=== PATIENT | male | born 1980 | race Hispanic/Latino ===

== ENCOUNTER 2017-06-05 18:14 | Inpatient (IN) | payer MEDICARE, MEDICAID ==
[2017-06-05 18:14] VITALS: BMI 35.4
[2017-06-05 21:03] LABS: URINE BILIRUBIN NEGATIVE (NEGATIVE); URINE BLOOD NEGATIVE (NEGATIVE); URINE COLOR Straw (YELLOW); URINE GLUCOSE (UA) NORMAL (Normal); URINE KETONE NEGATIVE (NEGATIVE); URINE LEUKOCYTE ESTERASE NEG Leu/uL (Negative); URINE PROTEIN NEGATIVE (NEGATIVE); URINE UROBILINOGEN NORMAL mg/dL (0.2-1.0); WBC URINE 1 /hpf (0-5)
[2017-06-05 21:28] LABS: BASO % 0.4 % (0.0-2.0); EOS % 0.3 % (0.0-4.0); HEMATOCRIT 40.8 % (35.0-51.0); LYMPH # 2.9 K/uL (1.0-4.3); MEAN CELL VOLUME 81.4 fL (80.0-94.0); MEAN CORPUSCULAR HGB CONC 34.4 g/dL (33.0-37.0); MEAN PLATELET VOLUME 8.6 fL (7.2-11.7); MONO # 0.5 K/uL (0.0-0.8); MONO % 5.2 % (0.0-10.0); RED CELL DISTRIBUTION WIDTH 13.9 % (11.5-14.5); WHITE BLOOD COUNT 9.9 K/uL (4.8-10.8)
[2017-06-05 21:43] LABS: ALB/GLOB RATIO 1.4 (1.0-2.1); ALCOHOL SERUM < 10 mg/dl (0-10); ALKALINE PHOSPHATASE 63 U/L (38-126); ALT/SGPT 29 U/L (21-72); AST/SGOT 12 U/L (17-59); BILIRUBIN,TOTAL 0.4 mg/dL (0.2-1.3); BLOOD UREA NITROGEN 17 mg/dL (9-20); CALCIUM 8.6 mg/dl (8.6-10.4); CARBON DIOXIDE 20 mmol/L (22-30); CHLORIDE 108 mmol/L (98-107); GFR AFRICAN-AMERICAN > 60; GLUCOSE,RANDOM 85 mg/dL (75-110); POTASSIUM 3.7 mmol/L (3.6-5.2); SODIUM 140 mmol/L (132-148); TOTAL PROTEIN 6.9 g/dL (6.3-8.3)
--- NOTE | 2017-06-06 00:35 | C.PDOC ---
History Of Present Illness Patient is a 37 y/o male who presents to the ED from [facility] for detox. Patient reports [facility] was not administering any antipsychotic medications, and is feeling paranoid and psychotic. Patient requests Geodon PO for symptoms. No other physical complaints at this time. Time Seen by Provider: 06/05/17 20:31 Chief Complaint (Nursing): Psychiatric Evaluation History Per: Patient History/Exam Limitations: no limitations Current Symptoms Are (Timing): Still Present Modifying Factor(s): Other Associated Symptoms: Paranoia Recent travel outside of the [place]: No Past Medical History Reviewed: Historical Data, Nursing Documentation, Vital Signs Vital Signs: Last Vital Signs Temp 98.5 F 06/05/17 21:50 Pulse 62 06/05/17 21:50 Resp 18 06/05/17 21:50 BP 115/74 06/05/17 21:50 Pulse Ox 98 06/06/17 00:41 - Medical History PMH: Anxiety, Depression Denies: Diabetes, Hepatitis, HIV, HTN, Seizures, Sexually Transmitted Disease Surgical History: No Surg Hx - [facility] Procedures INDIVIDUAL PSYCHOTHERAPY, SUPPORTIVE (06/18/16) Family History: States: Unknown Family Hx - Social History Hx Alcohol Use: No Hx Substance Use: No - Immunization History Hx Tetanus Toxoid Vaccination: No Hx Influenza Vaccination: Yes Hx Pneumococcal Vaccination: No Review Of Systems Constitutional: Negative for: Fever, Chills Psych: Positive for: Other (drug detox, feels paranoid) Physical Exam - Physical Exam Appears: Well, Other (mildly anxious, pleasant and cooperative) Skin: Normal Color, Warm, Dry Head: Atraumatic, Normacephalic Oral Mucosa: Moist Chest: Symmetrical Cardiovascular: Rhythm Regular, No Murmur Respiratory: Normal Breath Sounds, No Rales, No Rhonchi, No Wheezing ED Course And Treatment - Laboratory Results Result Diagrams: 06/05/17 21:21 06/05/17 21:21 Lab Interpretation: Normal (tox neg.) O2 Sat by Pulse Oximetry: 98 (room air) Pulse Ox Interpretation: Normal Progress Note: geodon PO Reevaluation Time: 01:29 Reassessment Condition: Improved - Physician Consult Information Outcome Of Conversation: d/w Crisis, ok to admit Medical Decision Making Medical Decision Making: Geodon PO administered. Disposition Doctor Will See Patient In The: Hospital Counseled Patient/Family Regarding: Studies Performed, Diagnosis - Disposition Disposition: HOSPITALIZED Disposition Time: 01:30 Condition: GOOD Forms: [facility] ([place]) - Clinical Impression Clinical Impression: Schizophrenia, Opiate abuse, continuous, Cocaine abuse - Scribe Statement The provider has reviewed the documentation as recorded by the Scribe Kristy Armstrong All medical record entries made by the Scribe were at my direction and personally dictated by me. I have reviewed the chart and agree that the record accurately reflects my personal performance of the history, physical exam, medical decision making, and the department course for this patient. I have also personally directed, reviewed, and agree with the discharge instructions and disposition.
[2017-06-06 02:15] VITALS: O2SAT 97
--- NOTE | 2017-06-06 03:07 | PCM.BM ---
<Sanjiv Marin - Last Filed: 06/06/17 03:04> Treatment Plan Problems - Problems identified on initial assessmt Depression Date Initiated: 06/06/17 Time Initiated: 02:30 Assessment reference: NA Status: Active Suicidal Ideation Date Initiated: 06/06/17 Time Initiated: 02:30 Assessment reference: NA Status: Active Auditory Hallucination Date Initiated: 06/06/17 Time Initiated: 02:30 Assessment reference: NA Status: Active Substance Abuse Date Initiated: 06/06/17 Time Initiated: 02:30 Assessment reference: NA Status: Active Treatment assets and liabiliti Patient Assests: cooperative, educated, self-reliant, ADL independent, negotiates basic needs Patient Liabilities: live alone, substance abuse, medical problems - Milieu Protocol Maintain good personal hygiene: daily Encourage regular showers, daily Remind patient to perform daily oral care, daily Assist patient to perform ADL's Maintain personal safety: every shift Educate patient to report safety concerns to staff, every shift Monitor environment for contraband/sharps Medication safety: Monitor for expected outcome, potential side effects: every shift, Assess barriers to learning: every shift, Assess readiness for medication education: every shift <Joana Hirsch - Last Filed: 06/07/17 10:40> Family Contact Family involvement: Famliy/SO not involved - Goals for Treatment Patient goals for treatment: "I want to go to [facility]." Discharge/Continuing Care - Education Needs Education Needs: Patient Medication, Patient Coping Skills, Patient Placement options, Patient Community resources - Discharge Discharge Criteria: Tolerates medication w/o severe side effects, No longer exhibiting s/s of withdrawal, Reduction of target symptoms Discharge to:: Substance Abuse Rehab - Treatment Team Participation Discussed with Family/SO: No Was Patient/Family/SO present at Treatment Team Meeting: Yes <Sundeep Moncada - Last Filed: 06/10/17 12:36> - Diagnosis (1) Bipolar affective, mixed, severe Status: Acute Interventions: 06/10/17 12:36 * Assess/adjust medications daily and /or as needed * See patient on an individual basis 7x/week to assess level of manic behaviors and stability * Discuss risks, benefits, side effects and alternatives of medications *
[2017-06-06] MEDS ORDERED: Pneumococcal 23-Valent Vaccine IM ONE (03:10)
[2017-06-06 06:27] VITALS: RESP 18
[2017-06-06] MEDS: Divalproex 500 mg DR Tab PO SCH ×2 (10:18→17:23)
[2017-06-06] MEDS: buPROPion 150 mg/24 Hours XL Tab PO SCH (12:12)
--- NOTE | 2017-06-06 12:59 | PCM.PSYCH ---
Initial Psychiatric Evaluation - Initial Psychiatric Evaluation Type of Admission: Voluntary Legal Status: Capacity Chief Complaint (in patient's own words): "Depressed" History of Present Illness and Precipitating Events: The patient is seen, chart reviewed and case discussed. 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 The patient was transferred from [facility] where he was there for 4 days. He states he was mandated to attend rehabilitation for 30 days because of drug use. He admits to using crack cocaine daily for the last 20 years. He also used heroin about a bundle a day in [place] but he was detoxed before rehab. He denies other drug use. He is here for feeling depressed and having suicidal ideation. He also admits to hearing voices sometimes and feeling paranoid before admission. He states that in [facility] they did not give any medications and this was why he wanted to come here. He is also focused on getting his "ADHD medication" but he understood that he will not needed and we do not have Strattera, his medication , here. He was diagnosed with bipolar disorder and admitted "15 times" and has a history of suicide attempts in the past. However, currently he is denying suicidal feelings. He is also not paranoid at this moment. Past psych history: As above. He was also in detox 20 times and rehabilitation 10 times in the past. Family psych history: Father committed suicide and was an alcoholic. Medical history: Hypothyroidism and high cholesterol Current Medications: Active Medications Generic Name Dose Route Start Last Admin Trade Name Freq PRN Reason Stop Dose Admin Aripiprazole 5 mg 06/06/17 18:00 Abilify PO BID HERMES Bupropion HCl 150 mg 06/06/17 12:15 06/06/17 12:12 Wellbutrin Xl PO 150 mg DAILY HERMES Administration Divalproex Sodium 500 mg 06/06/17 10:00 06/06/17 10:[address] PO 500 mg BID HERMES Administration Hydroxyzine HCl 50 mg 06/06/17 12:56 Atarax PO Q6H PRN Anxiety Nicotine 1 patch 06/06/17 12:15 06/06/17 12:12 Nicoderm Cq TD 1 patch DAILY HERMES Administration Past Psychiatric History - Past Psychiatric History Previous Treatment History: Inpatient Pertinent Medical Hx (Current Medical&Sleep Prob, Allergies): Allergies Allergy/AdvReac Type Severity Reaction Status Date / Time haloperidol [From Haldol] Allergy Verified 06/05/17 18:37 haloperidol lactate Allergy Verified 06/05/17 18:37 [From Haldol] metoclopramide HCl Allergy Verified 06/05/17 18:37 [From Reglan] Invega 06/18/16 Levothyroxine 06/18/16 Review of Systems - Psychiatric Psychiatric: Abnormal Sleep Pattern, Anhedonia, Anxiety, Behavioral Changes, Depression, Difficulty Concentrating, Hallucinations, Irritability, Mood Swings , Paranoia. absent: Homicidal Ideation, Suicidal Ideation Mental Status Examination - Personal Presentation Personal Presentation: Looks stated age - Affect Affect: Constricted - Motor Activity Motor Activity: Calm - Reliability in Providing Information Reliability in Providing Information: Fair - Speech Speech: Tangential - Mood Mood: Anxious - Formal Thought Process Formal Thought Process: Hallucinations (on and off), Paranoia (less today) - Cognitive Functions Orientation: Person, Place, Situation, Time Sensorium: Alert Attention/Concentration: Easily distracted Estimate of Intelligence: Average Judgement: Intact, as evidence by: Insight regarding need for hospitalization Memory: Recent intact, as evidence by: Ability to recall events of the day, Remote intact, as evidenced by: Abilit to recall sig. life events - Risk Risk: Diminished functioning - Strength & Assets Inventory Strength & Assets Inventory: Cooperative - Limitations Limitations: Living alone DSM 5 DX - DSM 5 DSM 5 Diagnosis: Bipolar I d/o - depressed, seveer r/o mixed episode r/o personality d/o Cocaine use d/o- severe Opioid use d/o - severe - Recommended/Plan of Treatment Treatment Recommendations and Plan of Treatment: Start wellbutrin for depression Depakote and Abilify for bipolar d/o Levox. for hypothyroidism Attend groups and activities Individual therapy daily Psychoeducation and support daily Encourage compliance with meds and after care Refer to outpatient program Teach healthy lifestyle methods, i.e. diet, exercise, meditation Smoking cessation and patch As needed medications [place] for abstinence CBT for relapse prevention Encourage MAT Refer to rehab or IOP, and self-help groups 32 min Projected ELOS: 7 days Prognosis: good w treatment - Smoking Cessation Smoking Cessation Initiated: Yes
[2017-06-07] MEDS: Levothyroxine 50 MCG TAB PO SCH (06:05)
[2017-06-07] MEDS: Divalproex 500 mg DR Tab PO SCH ×2 (09:01→17:22)
[2017-06-07] MEDS: buPROPion 150 mg/24 Hours XL Tab PO SCH (09:01)
[2017-06-07 16:03] VITALS: PULSE 100
--- NOTE | 2017-06-07 18:00 | PCM.PYCHPN ---
Psychiatric Progress Note - Psychiatric Progress Note Patient seen today, length of contact: 17 min Patient Chief Complaint: "I'm anxious" Problems Identified/Issues Discussed: The pt is seen, chart reviewed, case discussed with staff. Support given, CBT and [place] used briefly No new symptoms reported, improving slowly and needs more time Still odd but calmer No SEs from medications, risks discussed. After care discussed - wants rehab very much but not [facility] anymore Medication Change: Yes (meds change as planned) Medical Record Reviewed: Yes Mental Status Examination - Cognitive Function Orientation: Person, Place, Situation, Time Memory: Intact Attention: WNL Concentration: Poor Association: Loose (slightly) Fund of Knowledge: WNL - Mood Mood: Anxious - Affect Affect: Constricted - Speech Speech: Appropriate - Formal Thought Process Formal Thought Process: No Impairment - Suicidal Ideation Suicidal Ideation: No - Homicidal Ideation Homicidal Ideation: No Goal/Treatment Plan - Goal/Treatment Plan Need for Continued Stay: Discharge may exacerbated symptoms, Severe functional impairment Progress Toward Problem(s) and Goals/Treatment Plan: Start wellbutrin for depression Depakote and Abilify for bipolar d/o Levox. for hypothyroidism Attend groups and activities Individual therapy daily Psychoeducation and support daily Encourage compliance with meds and after care Refer to outpatient program Teach healthy lifestyle methods, i.e. diet, exercise, meditation Smoking cessation and patch As needed medications [place] for abstinence CBT for relapse prevention Encourage MAT Refer to rehab or IOP, and self-help groups
[2017-06-08] MEDS: Levothyroxine 50 MCG TAB PO SCH (05:33)
[2017-06-08 06:38] VITALS: BP 102/68; TEMP 97.3
[2017-06-08] MEDS: buPROPion 150 mg/24 Hours XL Tab PO SCH (10:34)
[2017-06-08] MEDS: Divalproex 500 mg DR Tab PO SCH (10:34)
--- NOTE | 2017-06-08 10:36 | PCM.PYCHDC ---
Mental Status Examination - Mental Status Examination Orientation: Person, Place, Situation, Time Memory: Impaired Mood: Anxious Affect: Constricted Speech: Appropriate Attention: Poor Concentration: Poor Association: WNL Fund of Knowledge: Poor Formal Thought Process: Paranoia Suicidal Ideation: No Current Homicidal Ideation?: No Discharge Summary - Discharge Note Reason for Hospitalization: Agitation, suicidal ideation Psychiatric History (includes Medical, Family, Personal Hx): Numerous admissions with bipolar d/o Laboratory Data: Abnormal Lab Results 06/08/17 08:38 Valproic Acid 50.1 Consultations:: List each consultation separately and include: 1. Reason for request. 2. Findings. 3. Follow-up Summary of Hospital Course include:: 1. Description of specific treatment plan utilized for patients during their course of treatmen. 2. Summarize the time- course for resolution of acute symptoms and/or regressed behaviors. 3. Describe issues identified and worked on during hospitalization. 4. Describe medication utilized. 5. Describe medical problems identified and treated. 6. Reassessment of suicide risk Summary of Hospital Course: The patient is seen, chart reviewed and case discussed. 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 The patient was transferred from [facility] where he was there for 4 days. He states he was mandated to attend rehabilitation for 30 days because of drug use. He admits to using crack cocaine daily for the last 20 years. He also used heroin about a bundle a day in [place] but he was detoxed before rehab. He denies other drug use. He is here for feeling depressed and having suicidal ideation. He also admits to hearing voices sometimes and feeling paranoid before admission. He states that in [facility] they did not give any medications and this was why he wanted to come here. He is also focused on getting his "ADHD medication" but he understood that he will not needed and we do not have Strattera, his medication , here. He was diagnosed with bipolar disorder and admitted "15 times" and has a history of suicide attempts in the past. However, currently he is denying suicidal feelings. He is also not paranoid at this moment. Past psych history: As above. He was also in detox 20 times and rehabilitation 10 times in the past. Family psych history: Father committed suicide and was an alcoholic. Medical history: Hypothyroidism and high cholesterol Hospital course: The pt was admitted and started on treatment with psychotherapy, support, psychoeducation and medications. NE and CBT used. The pt attended groups and activities, as well as milieu therapy. All the risks and benefits of medications are discussed and the patient understood and agreed. He was supposed to go to a rehab but they were hesitant about his stability and asked for an additional letter. Then, he had another blow up over [employer] and broke a door. He is then d/c'ed AMA - he asked to be dc'ed after the incident. He knew the risks but he is not ready to be referred to any rehab yet but he doesn;t want to comply and stay here as well. - Final Diagnosis (DSM 5) Condition upon Discharge: GOOD DSM 5: Bipolar I d/o - severe, mixed episode Personality d/o - unspecified Cocaine use d/o- severe Opioid use d/o - severe Disposition: AGAINST MEDICAL ADVICE Follow-up Treatment Plan: Use relapse prevention skills Return to ER or call 911 if suicidal, homicidal or symptoms relapse. Stay away from stress, alcohol and drugs. See primary doctor regularly and get labs.
== END 2017-06-08 13:00 | disposition left against medical advice (07) | DRG 885 ==
LOC: C.ER 18:14 → C.5E 06-06 01:31
PROVIDERS: ADMIT Psychiatry & Neurology Psychiatry; ATTEND Psychiatry & Neurology Psychiatry
DX: F31.60 Bipolar disorder, current episode mixed, unspecified (principal); E03.9 Hypothyroidism, unspecified; E78.00 Pure hypercholesterolemia, unspecified; F11.10 Opioid abuse, uncomplicated; F14.10 Cocaine abuse, uncomplicated